=== PATIENT | male | born 1975 | race Caucasian/White ===

== ENCOUNTER 2023-08-20 10:27 | Emergency (ER) | payer OTHER, SELFPAY ==
--- NOTE | 2023-08-20 10:43 | ED.SKABFB ---
HPI - Skin/Abscess/Foreign Bdy General Chief complaint: Skin/Abscess/Foreign Body Stated complaint: Skin Sore/Head Time Seen by Provider: 08/20/23 10:43 Source: patient Mode of arrival: ambulatory Limitations: no limitations History of Present Illness HPI narrative: 47-year-old male presents with complaint of infected cyst to top head. Patient reports that cyst has been draining for the past several weeks. Has been applying Neosporin with no relief of symptoms. Patient states he has had cyst for 5 years. His has not seen anyone for it. Has been growing in size. Patient plans to see a seating captain but has not scheduled an appointment. Does not have a primary care physician. Afebrile. All systems reviewed and negative except as noted above. Related Data Allergies Allergy/AdvReac Type Severity Reaction Status Date / Time No Known Allergies Allergy Verified 08/20/23 10:45 Review of Systems Review of Systems: CONSTITUTIONAL: Denies fever, chills, or sweats. EYES: Denies visual changes, redness, or discharge. ENT: Denies rhinorrhea, congestion, sore throat, or otalgia. CARDIOVASCULAR: Denies chest pain, palpitations, or edema. RESPIRATORY: Denies cough or dyspnea. GASTROINTESTINAL: Denies abdominal pain, nausea, vomiting, or diarrhea. GENITOURINARY: Denies dysuria or hematuria. SKIN: Denies rash or itching. Reports this to scalp. MUSCULOSKELETAL: Denies back pain, joint pain, or myalgia. NEUROLOGIC: Denies headache, numbness, or weakness. PSYCHIATRIC: Denies anxiety or depression. All other systems reviewed are negative, except as documented in HPI. PMFSH Comments At time of signature, agree with nursing past medical, surgical, social and family history. There is no relevant family history pertinent to the presenting complaint. Exam Narrative: GENERAL: This is a well-nourished, well-developed patient, in no apparent distress. HEAD: normocephalic, atraumatic. EYES: PERRL. Sclera clear/white. Vision is grossly intact. EARS: External ears normal NOSE: External nose normal NECK: Neck supple, non-tender without lymphadenopathy, masses or thyromegaly. CARDIOVASCULAR: Regular rate and rhythm without murmurs, gallops, or rubs. RESPIRATORY: Clear to auscultation. Breath sounds equal bilaterally. No wheezes, rales, or rhonchi. SKIN: warm, Dry, intact with no suspicious lesions or rash, good texture and turgor. mass like lesion to top of scalp approx. 4x4x1.5cm. opened to center with odor, purulent drainage, center is dark purplish-green. NEURO: awake, alert, and oriented to person, place and time. There were no obvious focal neurologic abnormalities. EXTREMITIES: No joint tenderness, effusion, or edema noted. Course Course Level of Care: Express Care Visit Vital Signs Vital signs: reviewed. MDM - Skin/Abscess/Foreign Bdy MDM Narrative Medical decision making narrative: discussed concern for skin cancer with patient due to appearance of mass. offered to transfer patient to ER today for further evaluation. He did not fee was necessary and stated he would go later if infection was worse. referred to plastics and dermatology. pt states he had called a general surgeon that can see him august 26 but had not made the appt yet. Patient is aware of diagnosis, understands and agrees to treatment plan. Anticipatory guidance given. Patient agrees to follow-up as directed and is aware of reasons to seek care at the emergency department. Portions of this record may have been created with voice recognition software Discharge Plan Discharge Clinical Impression: Mass of scalp, Wound infection Patient Disposition: Home, Self-Care Condition: Stable Instructions: Antibiotic Form Additional Instructions: Take antibiotic as prescribed until gone. Call and schedule follow up appointment with either plastics or seating captain. [facility] [phone] Prescriptions: New cephale
[2023-08-20 10:46] VITALS: BP 156/100; PULSE 95; RESP 16; TEMP 37; O2SAT 99
== END 2023-08-20 11:02 | disposition home or self-care (01) ==
PROVIDERS: Emergency Provider Nurse Practitioner Family
DX: R22.0 Localized swelling, mass and lump, head (principal); S01.00XA Unspecified open wound of scalp, initial encounter; L08.9 Local infection of the skin and subcutaneous tissue, unspecified; X58.XXXA Exposure to other specified factors, initial encounter
CPT/HCPCS: 99213; G0463